=== PATIENT | male | born 1990 ===

== ENCOUNTER 2024-09-02 16:10 | Outpatient (CLI) | payer OTHER, SELFPAY | END 2024-09-02 16:11 | disposition home or self-care (01) | LOC: AMB 09-23 13:24 | PROVIDERS: Visit Provider Family Medicine | DX: S09.90XA Unspecified injury of head, initial encounter (principal); V63.0XXA Driver of heavy transport vehicle injured in collision with car, pick-up truck or van in nontraffic accident, initial encounter; Y92.9 Unspecified place or not applicable | CPT/HCPCS: A0998 ==